=== PATIENT | female | born 1955 | race Caucasian/White ===

== ENCOUNTER → 2017-01-11 | Outpatient (CLI) | payer OTHER ==
[~2017-01-11] MED LIST: OPTIRAY 320 IV PRN
--- NOTE | 2017-01-11 13:09 | DIAGNOSTIC IMAGING REPORT ---
CT ANGIOGRAM OF THE CHEST CLINICAL HISTORY: Atypical chest pain and shortness of breath. History of recent right leg DVT. COMPARISON STUDY: No previous studies for comparison. TECHNIQUE: Following the IV administration of 92 mL of Optiray-320, CT angiogram of the thorax was performed from the thoracic inlet to the lung bases utilizing the pulmonary embolus protocol. Images are reviewed in the axial, sagittal, and coronal planes. IV contrast was administered without complication. MIP imaging was performed. CT DOSE: 644.18 mGy.cm FINDINGS: No pathologically enlarged axillary mediastinal or hilar lymph nodes were visualized. The ascending thoracic aorta measures 37 mm. No intimal flaps are visualized. There were no pulmonary artery filling defects to indicate acute pulmonary embolism. No pleural effusions are visualized. There was no evidence of focal pulmonary consolidation. IMPRESSION: 1. No acute intrathoracic findings 2. No evidence of acute pulmonary embolism 3. No evidence of focal pulmonary consolidation Electronically signed by: Thuan Gross M.D. 01/11/2017 1:07 PM Dictated Date/Time: 01/11/2017 1:04 PM
== END | disposition home or self-care (01) ==
LOC: C.CTS 12:38
DX: R06.02 Shortness of breath (principal)

== ENCOUNTER 2018-11-16 08:18 | Inpatient (IN) ==
--- NOTE | 2018-11-10 10:34 | PAT Medication Instructions ---
Medication Instructions Date of Service November 10, 2018 Home Medications apixaban [Eliquis] 2 tab PO QAM cholecalciferol (vitamin D3) 2,000 unit PO DAILY citalopram [Celexa] 10 mg PO UD diphenhydramine-acetaminophen 1 tab PO HS PRN gabapentin 3 tab PO HS leflunomide 10 mg PO QAM pantoprazole 40 mg PO QAM pediatric multivitamin [Gummi Bear 1 tab PO DAILY tramadol 50 mg PO BID PRN Continue as directed citalopram [Celexa] 10 mg PO UD ASK your prescriber and surgeon apixaban [Eliquis] 2 tab PO QAM (this will need to be held 72 hours prior to surgery in order for spinal anesthesia; please check with your prescribing doctor to see if this is okay) leflunomide 10 mg PO QAM DO NOT take the morning of surgery cholecalciferol (vitamin D3) 2,000 unit PO DAILY pediatric multivitamin [Gummi Bear 1 tab PO DAILY Take morning of surgery With a small sip of water, OTHERWISE NOTHING TO EAT OR DRINK AFTER MIDNIGHT: pantoprazole 40 mg PO QAM tramadol 50 mg PO BID PRN (okay to take up to 4 hours prior to surgery if needed) Take evening before surgery diphenhydramine-acetaminophen 1 tab PO HS PRN (if needed) gabapentin 3 tab PO HS tramadol 50 mg PO BID PRN (if needed) Other Notes If you have any questions please call us at [phone] or [phone] or [phone] or [phone]
--- NOTE | 2018-11-10 14:43 | Anesthesiology Consultation ---
Date of Service November 10, 2018 Assessment & Plan (1) Encounter for pre-operative examination: - Okay to hold Eliquis 72 hours per hematology/surgeon - PCP: 11/15/18: "it is medically reasonable to proceed with desired surgical procedure, if and only if hematology cleared regarding anticoagulation issues." Patient was seen by hematology and anticoagulation recommendations given. 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 Per heme note, hx rheumatoid arthritis (patient denied hx at PAT visit). Aware of upcoming Left TKA and recommend "hold her Eliquis three days prior to surgery and then resume after surgery.. once adequate hemostasis is achieved, which will be determined by surgeon." RLE U/S done 11/06/18 noting chronic/unchanged DVT from prior imaging 12/27/17 (surgeon aware)* Chart Review Chart Review: Acceptable Risk for Surgery and Patient seen in Pre Admission Testing Teaching & Discussion Pre-Anesthesia Teaching/Discussion Notes: Instructed NPO after midnight before surgery,except medications with 15 cc of water. Medication instructions provided according to the PAT guidelines. History Surgery Operation Date: 11/16/18 11:00 Proposed Procedures p Left Total Knee Arthroplasty - Paul Liang MD Height/Weight Height: 5 ft 5.5 in Weight: 105 kg Allergies Allergy/AdvReac Type Severity Reaction Status Date / Time No Known Allergies Allergy Unknown Verified 11/06/18 15:33 Medications Home Medications Medication Instructions Recorded Confirmed Last Taken apixaban [Eliquis] 2 tab PO QAM 11/06/18 11/06/18 11/06/18 cholecalciferol (vitamin D3) 2,000 unit PO DAILY 11/06/18 11/06/18 Unknown [Vitamin D3] citalopram [Celexa] 10 mg PO UD 11/06/18 11/06/18 Unknown diphenhydramine-acetaminophen 1 tab PO HS PRN 11/06/18 11/06/18 Unknown [Tylenol PM Extra Strength] gabapentin 3 tab PO HS 11/06/18 11/06/18 11/05/18 leflunomide 10 mg PO QAM 11/06/18 11/06/18 11/06/18 pantoprazole 40 mg PO QAM 11/06/18 11/06/18 11/06/18 pediatric multivitamin [Gummi Bear 1 tab PO DAILY 11/06/18 11/06/18 Unknown Multivitamin] tramadol 50 mg PO BID PRN 11/06/18 11/06/18 Unknown Past Medical History Medical History Acid reflux CONTROLLED Antithrombin III deficiency DVT (deep venous thrombosis) RLE; CHRONIC PER PATIENT; MONITORED BY DR. VILLAGOMEZ/RENATA Depression Obesity Osteoarthritis Personal history of kidney stones Rheumatoid arthritis PER HEMATOLOGY NOTE; PT DENIED Past Family History Family History Grandmother Family history of breast cancer Mother Family history of diabetes mellitus Past Surgical History Surgical History History of ankle surgery RIGHT History of arthroscopy of left knee X3 History of arthroscopy of right knee X2 History of cardiac cath 10 YEARS AGO= NO STENTS History of cholecystectomy History of colonoscopy History of endoscopy ? DILATION- PRIOR DYSPHAGIA RESOLVED S/P PROCEDURE History of hand surgery RIGHT HAND History of hysterectomy History of repair of right rotator cuff History of urologic surgery BLADDER TACKING Past Anesthesia History No Hx of Anesthesia Complications and No Family Hx of Anesthesia Complications History of PONV No Motion Sickness Screening History of Motion Sickness: Yes Social History Smoking Status: Never smoker Do You Dip or Chew Tobacco: No Hx Alcohol Use: Yes alcohol intake frequency: holidays/special occasions only Hx Substance Use: No substance use type: does not use Exercise / Class Metabolic Activity III < 4 Walking/Shop/Light housework Review of Systems Patient denies chest pain, shortness of breath, cough, wheezing, palpitations. Physical Exam Vital Signs VITALS BP 127/82 P 65 TEMP 98.0 SP02 97%RA RESP 16 PHYSICAL Full neck and c-spine range of motion. Full TMJ range of motion. TMD 3 finger breaths Mallampati Score 2 Dentition: partials upper/lower Lungs: clear throughout to auscultation Cardiac: regular rate and rhythm, no murmurs noted Spine: normal Carotid arteries: negative bruit Extremities: no edema Testing Electrocardiogram Date: 11/10/18 Findings: + NSR @ (78) Chest X-Ray Date: 11/10/18 Findings: + NAD No acute process. 1.1 cm ill-defined nodular opacity about the left lung base is not definitively seen on the lateral projection, possibly secondary to summation density artifact with underlying pulmonary nodule considered less likely (report was sent to PCP*) Echocardiogram Date: 02/23/17 EF >65%. No significant valvular disease. Other Testing RLE U/S: 11/06/18: stable chronic nonocclusive DVT right popliteal vein,essentially unchanged compared to 12/27/17 study. Laboratory Results 11/10/18 15:18 11/10/18 15:18 Blood Type A Positive 11/10/18 15:18 Antibody Screen NEGATIVE 11/10/18 15:18 PT 10.6 Seconds (9.0-12.0) 11/10/18 15:18 INR 1.0 (0.9-1.1) 11/10/18 15:18 APTT 27.9 Seconds (21.0-31.0) 11/10/18 15:18 Hemoglobin A1c 5.4 % (4.5-5.6) 11/10/18 15:18 Urine Color Yellow 11/10/18 15:18 Urine Appearance Clear (Clear) 11/10/18 15:18 Urine pH 6.5 (4.5-7.5) 11/10/18 15:18 Ur Specific [place] 1.023 (1.000-1.030) 11/10/18 15:18 Urine Protein Negative (Negative) 11/10/18 15:18 Urine Glucose (UA) Negative (Negative) 11/10/18 15:18 Urine Ketones Trace (Negative) H 11/10/18 15:18 Urine Nitrite Negative (Negative) 11/10/18 15:18 Ur Leukocyte Esterase 1+ (Negative) H 11/10/18 15:18 Urine WBC (Auto) 10-30 /hpf (0-5) H 11/10/18 15:18 Urine RBC (Auto) 0-4 /hpf (0-4) 11/10/18 15:18 U Hyaline Cast (Auto) 0 /lpf (0-5) 11/10/18 15:18 U Epithel Cells (Auto) >30 /lpf (0-5) H 11/10/18 15:18 Urine Bacteria (Auto) Negative (Negative) 11/10/18 15:18 11/10/18 15:18 Urine Culture - Final Urine,Clean Catch Gardnerella-like bacilli No sensitivities to follow per urine culture*
--- NOTE | 2018-11-10 16:05 | XRay Report ---
XR chest Pre-admission PA/Lat HISTORY: 63 years-old Female pat preoperative exam. No acute chest complaints COMPARISON: CTA of the chest 01/11/2017 TECHNIQUE: PA and lateral views of the chest FINDINGS: Cardiomediastinal and hilar silhouettes are within normal limits. No pneumothorax, pleural effusion, focal airspace consolidation or overt pulmonary edema. Ill-defined left basilar opacities are noted a long with ill-defined 1.1 cm nodular focus seen on the PA view without correlate on the lateral proje ction. Degenerative changes of the shoulders and spine. Prior cholecystectomy. IMPRESSION: 1. No acute process. 2. 1.1 cm ill-defined nodular opacity about the left lung base is not definitively seen on the latera l projection, possibly secondary to summation density artifact with underlying pulmonary nodule consi dered less likely. The above report was generated using voice recognition software. It may contain grammatical, syntax o r spelling errors. Electronically signed by: Goran Cohen M.D. 11/10/2018 4:04 PM
[2018-11-10 16:28] LABS: Basophils # (auto) 0.02 K/uL (0-0.2); Basophils % (auto) 0.4 %; Eosinophils # (auto) 0.37 K/uL (0-0.5); Eosinophils % (auto) 6.7 %; Hematocrit (blood only) 38.2 % (37-47); Hemoglobin 12.5 g/dL (12.0-16.0); Immature Granulocytes # (auto) 0.01 K/uL (0.00-0.02); Immature Granulocytes % (auto) 0.2 %; Lymphocytes # (auto) 1.84 K/uL (1.2-3.4); Lymphocytes % (auto) 33.3 %; Mean Corpuscular Hgb Conc 32.7 g/dL (32-36); Mean Corpuscular Volume 85.8 fL (80-100); Monocytes # (auto) 0.48 K/uL (0.11-0.59); Monocytes % (auto) 8.7 %; Neutrophils % (auto) 50.7 %; Platelet Count 198 K/uL (130-400); RDW Coefficient of Variation 14.1 % (11.5-14.5); RDW Standard Deviation 44.4 fL (36.4-46.3); Red Blood Count 4.45 M/uL (4.2-5.4); White Blood Count 5.52 K/uL (4.8-10.8)
[2018-11-10 16:29] LABS: Appearance Urine Clear (Clear); Bacteria Urine Automated Negative (Negative); Bilirubin Urine Negative (Negative); Blood Urine Negative (Negative); Cast Urine Automated 0 /lpf (0-5); Color Urine Yellow; Epithelial Cell Urine Auto >30 /lpf (0-5); Glucose Urine UA Negative (Negative); Ketones Urine Trace (Negative); Leukocyte Esterase Urine 1+ (Negative); Nitrite Urine Negative (Negative); Protein Urine Negative (Negative); RBC Urine Automated 0-4 /hpf (0-4); Specific Gravity Urine 1.023 (1.000-1.030); Urobilinogen Urine Negative (Negative); pH Urine 6.5 (4.5-7.5)
[2018-11-10 16:33] LABS: Albumin Level 3.3 gm/dl (3.4-5.0); BUN Creatinine Ratio 21.1 (10-20); Calcium 9.4 mg/dl (8.5-10.1); Creatinine Clr Calc Pharmacy 110.6 ml/min; Est GFR (African American) 110.8; Est GFR (Non-African American) 95.6; Potassium 3.7 mmol/L (3.5-5.1)
[2018-11-10 16:41] LABS: Partial Thromboplastin Time 27.9 Seconds (21.0-31.0); Prothrombin Time 10.6 Seconds (9.0-12.0)
[2018-11-11 06:47] LABS: Estimated Average Glucose 108 mg/dl; Hemoglobin A1C 5.4 % (4.5-5.6)
--- NOTE | 2018-11-15 11:10 | History and Physical Report ---
DATE OF ADMISSION: 11/16/2018 CHIEF COMPLAINT: Left knee pain. HISTORY OF PRESENT ILLNESS: The patient is a 63-year-old female with known osteoarthritis about her left knee. She is on Eliquis for long-term anticoagulation due to history of DVT. She is unable to take anti-inflammatory medications. She has had previous corticosteroid injection, but continues to have pain and disability with activities of daily living. She now desires to proceed with left total knee arthroplasty. 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 PAST SURGICAL HISTORY: Hand surgery, bilateral knee surgery, bladder surgery, hysterectomy, right ankle surgery, tonsils and adenoids. MEDICATIONS: Citalopram hydrobromide 10 mg daily, pantoprazole sodium 40 mg daily, Plaquenil 200 mg 2 tabs daily, Eliquis 5 mg b.i.d., tramadol 50 mg q. 8 hours p.r.n. pain, gabapentin 100 mg 3 capsules at bedtime. ALLERGIES: No known drug allergies. SOCIAL HISTORY AND REVIEW OF SYSTEMS: Noncontributory. PHYSICAL EXAMINATION: GENERAL: Well-nourished, well-developed female who appears her stated age. HEENT: Normocephalic, atraumatic, extraocular movements intact, oropharynx pink and moist. NECK: Supple without adenopathy. LUNGS: Clear to auscultation bilaterally. HEART: Regular rate and rhythm. ABDOMEN: Soft, nontender, nondistended. EXTREMITIES: The upper extremities are within normal limits. The left knee has a varus alignment. She complains primarily of medial compartment pain. Her range of motion from 0-125 degrees. X-RAYS: X-rays were reviewed. She has a varus aligned knee. She has [id number] arthritis of the medial compartment with complete loss of the joint space. There are medial joint line osteophytes. There is moderate to severe degenerative change about the patellofemoral joint with large osteophytes as well. ASSESSMENT: Left knee degenerative joint disease. PLAN: Risks versus benefits were discussed, consent was obtained. The patient's primary care physician is Dr. Anderson. Her wreath machine tender is Dr. Cardenas from [facility]. Will proceed with left total knee arthroplasty as indicated.
[~2018-11-16 08:18] MED LIST changes: +ACETAMINOPHEN 500 MG TAB PO SCH; +BUPIVACAINE 0.5 % 5 MG/1 ML PF 10ML VIAL ONE; +CeleBREX 200 MG CAP PO SCH; +FAMOTIDINE 20 MG TAB PO SCH; +GABAPENTIN 300 MG x 2 PO SCH; +LR 500ML BOLUS, THEN 15ML/HR IV SCH; -OPTIRAY 320 IV PRN; +ROPIVACAINE 0.5% 5 MG/ML 30 ML VIAL ONE; +ROPIVACAINE 0.5% HCL/PF 150 MG, BUPIVACAINE 0.5% MPF 30 ML, EPINEPHrine 30MG/30ML (OR U... INFIL SCH; +dexAMETHasone 4 MG TAB PO SCH
[2018-11-16] MEDS ORDERED: PHENYLEPHRINE 100MCG/ML 5ML SYR ONE (08:31)
[2018-11-16] MEDS ORDERED: PROPOFOL IV EMULSION 10 MG/ML 20 ML VIAL IV ONE ×2 (08:31→10:47)
[2018-11-16] MEDS ORDERED: ePHEDrine sulfate 50 MG/ML SYR ONE (08:31)
[2018-11-16] MEDS ORDERED: fentaNYL citrate 100 MCG/2 ML VIAL ONE (08:31)
[2018-11-16] MEDS ORDERED: LIDOCAINE HCL 2% 2 ML VIAL/AMP(20MG/ML) INFIL ONE (08:31)
[2018-11-16] MEDS ORDERED: MIDAZOLAM HCL 1 MG/ML 2ML VIAL ONE ×2 (08:31)
--- NOTE | 2018-11-16 09:14 | History & Physical Bridge Note ---
Date of Service November 16, 2018 History & Physical Bridge Note I have examined the patient, reviewed the History & Physical and in the interval since the performance of the History & Physical I have noted the following changes of clinical significance: no changes noted
[2018-11-16] MEDS ORDERED: POVIDONE-IODINE OP SOLN 30 ML BTL ONE (09:31)
[2018-11-16] MEDS ORDERED: ORTHO JOINT ANESTHETIC ONE (09:31)
[2018-11-16] MEDS ORDERED: BACITRACIN INJ 50,000 UNIT VIAL ONE (09:31)
[2018-11-16] MEDS ORDERED: ATROPINE SULFATE 0.1 MG/ML 10ML SYR IV PRN ×2 (10:08→12:52)
[2018-11-16] MEDS ORDERED: ePHEDrine sulfate 50 MG/ML AMP IV PRN ×2 (10:08→12:52)
[2018-11-16] MEDS: CEFAZOLIN 2000MG 2,000 MG/15 ML SYR IV SCH ×3 (10:23→19:40)
--- NOTE | 2018-11-16 11:22 | Operative Report ---
Post Operative Report Pre & Post Diagnosis Operation Date: 11/16/18 11:00 Pre-Op Diagnosis: LEFT KNEE OSTEOARTHRITIS Post-Op Diagnosis: LEFT KNEE OSTEOARTHRITIS Procedure Operation Date: 11/16/18 11:00 Actual Procedures p Left Total Knee Arthroplasty(Left) - Paul Liang MD Surgeon Paul Liang MD Chief Inspector Molly Estimated Blood Loss 10 Findings Consistent with Post-Op Diagnosis Specimens Bone fragments Anesthesia Type Spinal MAC Complications none Disposition Accompanied Patient To Recovery: No Disposition: Recovery Room Indications Knee pain Description of Procedure Patient's left leg was prepped and draped in usual sterile manner. The limb was exsanguinated with an Esmarch bandage tourniquet inflated to 3 enemas Vicryl. Longitudinal incision was made and a median parapatellar incision was made after again the patella was everted and the knee was flexed fat pad was removed and the anterior posterior cruciate was removed. The medial face of the tibia was cleared of soft tissues in the blunt Hohmann and proximal tibia was osteotomized at the appropriate level using the oscillating saw and the guide. This bone fragment was removed. Next attention was turned to the femur was drilled was used to gain access to the femoral canal. Distal femoral cut was made at a level of 10 mm due to the preoperative flexed flexion contracture. The chamfer cuts with a meat made and as well as the notch cut was made. The medial and lateral meniscus were removed and the proximal femoral component was impacted in position. A blunt Hohmann was used to presented to the anterior leg and the proximal tibia size 4 was chosen the stem was prepared using the drill and a punch and trial reduction was carried out an 11 mm poly-was chosen. Patella was reamed and a 35 mm patella was utilized. We will try removed after documentation that the patella tracked well the knee was thoroughly irrigated periarticular joint mix was injected and the final components were cemented into position. Following hardening cement Betadine soap was utilized to range of motion the joint mix was injected and Hemovac drain was placed the extensor mechanism was closed using #1 Vicryl subcutaneous tissue was closed using 0 Dexon skin was closed with is applied. Sterile dressing of Adaptic 4 x 4's sterile umbilicus applied. The patient tolerated the procedure well. Mr. Souza was utilized for all portions of the case including positioning prepping draping surgical assistance wound closure and dressing application. I attest to the content of the Intraoperative Record and any orders documented therein. Any exceptions are noted below.
--- NOTE | 2018-11-16 12:33 | XRay Report ---
XR knee LT 2V routine CLINICAL HISTORY: Postop knee arthroplasty COMPARISON: None. DISCUSSION: There are postsurgical changes of a total left knee arthroplasty and patellar resurfacing . The femoral and tibial components appear well seated. No acute fractures or dislocations are visual ized. There is an overlying surgical drain. IMPRESSION: Postsurgical changes of a total left knee arthroplasty. Electronically signed by: Thuan Gross M.D. 11/16/2018 12:32 PM
[2018-11-16] MEDS ORDERED: ONDANSETRON INJ 2 MG/ML 2 ML VIAL ONE (12:47)
[2018-11-16] MEDS ORDERED: DEXAMETHASONE SOD INJ 4 MG/ML VIAL IV PRN (12:52)
[2018-11-16] MEDS ORDERED: fentaNYL citrate 100 MCG/2 ML VIAL IV PRN (12:52)
[2018-11-16] MEDS ORDERED: ONDANSETRON INJ 2 MG/ML 2 ML VIAL IV PRN ×2 (12:52→13:24)
[2018-11-16] MEDS ORDERED: SODIUM CHLORIDE 0.9% 1000ML 1,000 ML IV SCH (13:24)
[2018-11-16] MEDS ORDERED: BISACODYL 10 MG SUPP PR PRN (13:24)
[2018-11-16] MEDS ORDERED: MAGNESIUM HYDROXIDE SUSP 30 ML UDC PO PRN (13:24)
[2018-11-16] MEDS ORDERED: NALOXONE HCL 0.4 MG/1 ML VIAL/CARP IV PRN (13:24)
[2018-11-16] MEDS ORDERED: HYDROmorphone INJ 0.5 MG/0.5 ML SYR IV PRN (13:24)
[2018-11-16] MEDS ORDERED: METOCLOPRAMIDE HCL INJ 5 MG/ML 2 ML VIAL IV PRN (13:24)
--- NOTE | 2018-11-16 14:02 | Anesthesiology Progress Note ---
Date of Service November 16, 2018 Anesthesia Post Procedure Vital Signs Vital Signs: Temp Pulse Pulse Resp BP Pulse Ox 11/16/18 13:00 77 18 143/83 H 99 11/16/18 12:50 36.4 C L 70 15 160/84 H 98 11/16/18 12:40 77 14 141/84 H 100 11/16/18 12:30 79 15 146/87 H 99 11/16/18 12:20 82 19 146/98 H 98 11/16/18 12:10 83 16 140/76 100 11/16/18 12:05 89 17 133/82 100 11/16/18 11:59 36 C L 98 H 16 132/76 99 11/16/18 08:46 36.7 C 84 18 171/93 H Pain Intensity Left Knee: Pain Intensity: 0 Notes Mental Status: alert / awake / arousable and participated in evaluation Patient Amnestic to Procedure: Yes Nausea / Vomiting: adequately controlled Pain: adequately controlled Airway Patency, RR, SpO2: stable & adequate BP & HR: stable & adequate Hydration State: stable & adequate Neuraxial Anesthesia: was administered and sensory block is resolving Anesthetic Complications: no major complications apparent
[2018-11-16] MEDS ORDERED: ZOLPIDEM TARTRATE 5 MG TAB PO PRN (17:12)
[2018-11-16] MEDS: OXYCODONE HCL IR 5 MG TAB (IMMEDIATE RELEASE) PO PRN ×2 (18:25→23:30)
[2018-11-16] MEDS: DOCUSATE SODIUM 100 MG CAP PO SCH (20:08)
[2018-11-16] MEDS: SENNA 8.6 MG TAB PO SCH (20:08)
[2018-11-16] MEDS: GABAPENTIN 300 MG CAP PO SCH (20:08)
[2018-11-16] MEDS: ACETAMINOPHEN 500 MG TAB PO SCH (21:30)
[2018-11-17] MEDS: CEFAZOLIN 2000MG 2,000 MG/15 ML SYR IV SCH (02:13)
[2018-11-17] MEDS: ACETAMINOPHEN 500 MG TAB PO SCH ×3 (06:11→21:49)
[2018-11-17 06:55] LABS: Hematocrit (blood only) 32.7 % (37-47); Hemoglobin 10.7 g/dL (12.0-16.0); Mean Corpuscular Hgb Conc 32.7 g/dL (32-36); Mean Corpuscular Volume 84.9 fL (80-100); Mean Platelet Volume 9.9 fL (7.4-10.4); Platelet Count 179 K/uL (130-400); RDW Coefficient of Variation 13.8 % (11.5-14.5); RDW Standard Deviation 42.6 fL (36.4-46.3); Red Blood Count 3.85 M/uL (4.2-5.4); White Blood Count 10.66 K/uL (4.8-10.8)
[2018-11-17] MEDS: PANTOprazole 40 MG TAB PO SCH (07:08)
[2018-11-17 07:30] LABS: BUN Creatinine Ratio 19.3 (10-20); Calcium 8.4 mg/dl (8.5-10.1); Est GFR (African American) 85.1; Est GFR (Non-African American) 73.4; Potassium 3.6 mmol/L (3.5-5.1)
--- NOTE | 2018-11-17 07:47 | Anesthesiology Progress Note ---
Date of Service November 17, 2018 Anesthesia Post Procedure Vital Signs Vital Signs: Temp Pulse Pulse Resp BP Pulse Ox 11/17/18 03:58 36.5 C 75 18 147/77 H 95 11/16/18 23:36 36.6 C 76 16 144/78 H 97 11/16/18 16:21 36.5 C 66 17 122/74 97 11/16/18 15:35 75 17 125/75 98 11/16/18 14:26 74 16 124/75 99 11/16/18 13:20 36.5 C 74 16 99 11/16/18 13:00 77 18 143/83 H 99 11/16/18 12:50 36.4 C L 70 15 160/84 H 98 11/16/18 12:40 77 14 141/84 H 100 11/16/18 12:30 79 15 146/87 H 99 11/16/18 12:20 82 19 146/98 H 98 11/16/18 12:10 83 16 140/76 100 11/16/18 12:05 89 17 133/82 100 11/16/18 11:59 36 C L 98 H 16 132/76 99 11/16/18 08:46 36.7 C 84 18 171/93 H Pain Intensity Left Knee: Pain Intensity: 3 Notes Mental Status: alert / awake / arousable and participated in evaluation Patient Amnestic to Procedure: Yes Nausea / Vomiting: adequately controlled Pain: adequately controlled Airway Patency, RR, SpO2: stable & adequate BP & HR: stable & adequate Hydration State: stable & adequate Neuraxial Anesthesia: was administered and sensory block resolved Anesthetic Complications: no major complications apparent and Pt Satisfied with anesthetic care
--- NOTE | 2018-11-17 08:35 | Orthopedic Progress Note ---
Date of Service November 17, 2018 Assessment & Plan (1) Left knee DJD: PT and OT protocols today. Weightbearing as tolerated. DVT prophylaxis with apixaban twice daily, LIVIER Hua. We will follow her calf pain at this point in time to see if it has worsens or is getting better. I discussed this with the patient and she will make note if there is any changes. Pain management with acetaminophen, hydromorphone, oxycodone. Discharge planning-patient is planning for home health services upon discharge. Subjective Patient is postop day 1 status post left total knee arthroplasty. She is currently sitting up at the bedside in her chair eating her breakfast. She denies shortness of breath, chest pain, lightheadedness, nausea vomiting. She states she was having little bit of pain in the posterior calf this morning. She states that it was mild. She has no other complaints at this time. Physical Exam Vital Signs (Past 24 Hours): Last Vital Signs Temp 36.5 C 11/17/18 08:10 Pulse 76 11/17/18 08:10 Resp 16 11/17/18 08:10 BP 131/74 11/17/18 08:10 Pulse Ox 95 11/17/18 08:10 Physical Exam: Dressings are intact and dry. It is noted that she had some excess drainage and the dressing was reinforced. No further drainage is noted at this time. Hemovac drainage was 75 mL's from the previous shift. She points to a small area that is posterior lateral on her proximal calf on the left leg that was the point of her pain. On palpation she does not have any overt pain in that area but mild at best. Homans exam is negative. Neurovascular is intact. Toes are mobile. Results & Data Laboratory Results 11/17/18 11/17/18 Range/Units 06:38 06:38 WBC 10.66 (4.8-10.8) K/uL RBC 3.85 L (4.2-5.4) M/uL Hgb 10.7 L (12.0-16.0) g/dL Hct 32.7 L (37-47) % MCV 84.9 (80-100) fL MCH 27.8 (25-34) pg MCHC 32.7 (32-36) g/dL RDW Std Deviation 42.6 (36.4-46.3) fL RDW Coeff of Debora 13.8 (11.5-14.5) % Plt Count 179 (130-400) K/uL MPV 9.9 (7.4-10.4) fL Sodium 143 (136-145) mmol/L Potassium 3.6 (3.5-5.1) mmol/L Chloride 113 H (98-107) mmol/L Carbon Dioxide 24 (21-32) mmol/L Anion Gap 6.0 (3-11) BUN 16 (7-18) mg/dl Creatinine 0.85 (0.6-1.2) mg/dl Est Cr Clr Drug Dosing 84.0 ml/min Est GFR ( Amer) 85.1 Est GFR (Non-Af Amer) 73.4 BUN/Creatinine Ratio 19.3 (10-20) Glucose 164 H (70-99) mg/dl Calcium 8.4 L (8.5-10.1) mg/dl
[2018-11-17] MEDS: MULTIVITAMIN TAB PO SCH (09:13)
[2018-11-17] MEDS: OXYCODONE HCL IR 5 MG TAB (IMMEDIATE RELEASE) PO PRN ×4 (09:13→23:35)
[2018-11-17] MEDS: DOCUSATE SODIUM 100 MG CAP PO SCH ×2 (09:14→20:34)
[2018-11-17] MEDS: CHOLECALCIFEROL 1,000 UNITS TAB PO SCH (09:14)
[2018-11-17] MEDS: APIXABAN 5 MG TABLET PO SCH ×2 (09:14→20:34)
--- NOTE | 2018-11-17 16:38 | Ultrasound Report ---
ULTRASOUND LEFT LOWER EXTREMITY VENOUS CLINICAL HISTORY: Left leg pain. Recent surgery. COMPARISON STUDY: No priors TECHNIQUE: Real-time, grayscale, and color Doppler sonography of the deep veins of the left lower ext remity was performed from the inguinal crease to the calf. Compression and augmentation were utilized . FINDINGS: There is no sonographic evidence of deep venous thrombosis identified in the left lower ext remity. The common femoral, superficial femoral, and popliteal veins are patent and normally compress ible. The greater saphenous vein and the profunda femoris vein at the junction with the common femora l vein are clear. The visualized calf veins are patent. IMPRESSION: There is no sonographic evidence of deep venous thrombosis identified in the left lower e xtremity. Electronically signed by: Nathan Guerrero M.D. 11/17/2018 4:37 PM
[2018-11-17] MEDS ORDERED: HydrALAZINE HCL 20 MG/ML VIAL IV ONE (18:19)
--- NOTE | 2018-11-17 20:19 | Consultation ---
Date of Consultation November 17, 2018 Assessment & Plan (1) Left knee DJD: 63 y/o F Hx DVT, DJD, RA, depression. Presented for elective L TKR. In the post-op period she has been persistently hypertensive independent of pain levels. She does not carry a prior diagnosis of HTN. She denies a headache, CP or SOB. Her systolic blood pressure on initial evaluation was 180. 1) HTN post-op - if this persists, it is possible that she has undiagnosed HTN. More likely this post-op hypertension which can be due to resultant sympathetic activation during this period, irrespective of pain. we have provided Hydralazine as needed due to it's short duration of action and ability to provide IV dosing on the med floor. If this persists, a B ilene would be a better option. If it is felt that she does have undiagnosed HTN, we could give her a trial of an MANA provided AM labs are WNL. 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 3) Hx of DVTs - Has resumed Eliquis 4) Depression - cont Citalopram Total time for this consult including review of labs, meds, imaging, ortho notes - discussion with pt - 34 min Medical service will follow pending normalization of BP Present on Admission?: Yes History of Present Illness Reason for Consultation: HTN Requesting Physician: Garth Attending Physician: Paul Liang MD History of Present Illness 63 y/o F Hx DVT, DJD, RA, depression. Presented for elective L TKR. In the post-op period she has been persistently hypertensive independent of pain levels. She does not carry a prior diagnosis of HTN. She denies a headache, CP or SOB. She denies excessive pain a the surgical site. Her systolic blood pressure on initial evaluation was 180. PMH: 1) Hypercoagulable with history of DVT - possibly has antithrombin III deficiency. 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 which has been present for 1.5 yrs 2) DJD 3) Depression 4) Obese 5) RA Social: No history of smoking or drinking Family: Mother due to cardiac arrest - she had ESD and one day prior to commencing dialysis Father due to CAD/[place] Family: Allergies Allergy/AdvReac Type Severity Reaction Status Date / Time No Known Allergies Allergy Unknown Verified 11/16/18 08:41 Home Medications Home Medications Medication Instructions Recorded Confirmed Type apixaban [Eliquis] 5 mg PO BID 11/06/18 11/16/18 History cholecalciferol (vitamin D3) 2,000 unit PO DAILY 11/06/18 11/16/18 History [Vitamin D3] citalopram [Celexa] 10 mg PO UD 11/06/18 11/06/18 History diphenhydramine-acetaminophen 1 tab PO HS PRN 11/06/18 11/16/18 History [Tylenol PM Extra Strength] gabapentin 3 tab PO HS 11/06/18 11/06/18 History leflunomide 10 mg PO QAM 11/06/18 11/06/18 History pantoprazole 40 mg PO QAM 11/06/18 11/06/18 History pediatric multivitamin [Gummi Bear 1 tab PO DAILY 11/06/18 11/16/18 History Multivitamin] tramadol 50 mg PO BID PRN 11/06/18 11/16/18 History acetaminophen [Pain Reliever] 1,000 mg PO Q8 14 Days #84 tab 11/17/18 Rx cefadroxil 500 mg PO BID #28 cap 11/17/18 Rx oxycodone 5 - 10 mg PO Q6H PRN #30 tab 11/17/18 Rx sennosides [Senokot] 17.2 mg PO HS #30 tab 11/17/18 Rx Patient History Family History Grandmother Family history of breast cancer Mother Family history of diabetes mellitus Social History Preferred Language: Kinyarwanda Communication Ability: Effective Bridge [employer] Manager Required: No Beliefs That Will Affect Care: None Current Living Situation: Spouse and Other Current Living Situation Comment: [employer]OUSE [employer] BROTHER Other Information That Helps Us Care for You: No Feels Safe at Home: Yes Smoking Status: Never smoker Hx Alcohol Use: Yes Hx Substance Use: No Review of Systems Gen: Denies fevers, night sweats, rigors, fatigue, malaise, weight loss/gain ENT: Denies congestion, throat pain, hearing loss Eyes: Denies acute visual changes CV: Denies CP, palpitations Pulmonary: Denies SOB, cough, wheezing GI: Denies N/V, diarrhea, constipation Neuro: Denies acute or unilateral weakness, acute gait impairment, headache or acute visual changes Musculoskeletal: Denies joint pain, inflammation Endocrine: Denies polydipsia, polyuria Skin: Denies acute rashe or ulcers Physical Exam Vital Signs (Past 24 Hours): Last Vital Signs Temp 36.8 C 11/17/18 17:38 Pulse 72 11/17/18 19:44 Resp 18 11/17/18 17:38 BP 152/77 H 11/17/18 19:44 Pulse Ox 98 11/17/18 17:38 Physical Exam: General: AAO x 3, no distress ENT: No erythema or exudates, no thrush Eyes: KATHRYN, EOMI Head and neck: Normocephalic, atraumatic, No JVD, neck is supple. Chest/heart: Nontender, S1,2, RRR, no murmurs, no gallops Lungs: CTAB, no wheezing or crackles Abdomen: Nontender, nondistended, BS+ Neuro: AAO x 3, speech is clear, no unilateral weakness or loss of sensation, coordination intact Musculoskeletal: No joint inflammation, muscle tenderness, FROM Skin: No acute rashes or ulcers Extremities: No clubbing, cyanosis, edema
[2018-11-17] MEDS: SENNA 8.6 MG TAB PO SCH (20:34)
[2018-11-17] MEDS: GABAPENTIN 300 MG CAP PO SCH (20:34)
[2018-11-18] MEDS: OXYCODONE HCL IR 5 MG TAB (IMMEDIATE RELEASE) PO PRN ×3 (03:54→12:17)
[2018-11-18] MEDS: ACETAMINOPHEN 500 MG TAB PO SCH (05:38)
[2018-11-18] MEDS: APIXABAN 5 MG TABLET PO SCH (08:23)
[2018-11-18] MEDS: CHOLECALCIFEROL 1,000 UNITS TAB PO SCH (08:23)
[2018-11-18] MEDS: DOCUSATE SODIUM 100 MG CAP PO SCH (08:23)
[2018-11-18] MEDS: PANTOprazole 40 MG TAB PO SCH (08:24)
[2018-11-18] MEDS: MULTIVITAMIN TAB PO SCH (08:24)
--- NOTE | 2018-11-18 09:53 | Orthopedic Progress Note ---
Date of Service November 18, 2018 Assessment & Plan (1) Status post left knee replacement: 63 yo female stable POD #2 s/p left TKA 1. Med management 2. DVT prophylaxis- rosae Melita Abarca 3. PT/OT 4. D/C planning- home w/ HH Subjective Pt resting in bed, pain controlled, denies complaints Physical Exam Vital Signs (Past 24 Hours): Last Vital Signs Temp 36.6 C 11/18/18 07:40 Pulse 83 11/18/18 07:40 Resp 18 11/18/18 07:40 BP 157/72 H 11/18/18 07:40 Pulse Ox 96 11/18/18 07:40 Physical Exam: Toes mobile, N/V/I, dressing in place
--- NOTE | 2018-11-21 03:36 | Discharge Summary ---
DISCHARGE DIAGNOSIS: Degenerative joint disease, left knee. 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 CONSULTS: Dr. Wai Guallpa. COMPLICATIONS: None. PROCEDURES: Left total knee arthroplasty performed by Dr. Liang on 11/16/2018. BRIEF HISTORY: As dictated in the history and physical. HOSPITAL SUMMARY: The patient was admitted on the above date and had the above-noted surgery performed, which she tolerated well. On the first postoperative day, she was sitting at the bedside eating breakfast. Denied shortness of breath, chest pain, lightheadedness, nausea or vomiting. States she was having a little bit of pain in the posterior calf that morning that was mild. She had no other complaints. Vital signs were stable. She was afebrile. Dressings were intact and dry. She has some noted access drainage around the dressing, which was reinforced. No further drainage as noted at that time. Hemovac drainage was 75 mL from the previous shift. She points to a small area that is in the posterior lateral calf that was giving her some discomfort. She did not have any overt pain in that area but was mild at best. Homans' exam was negative. Neurovascularly intact. Toes were mobile. Hemoglobin was 10.7 and she was started on physical therapy protocol and continued on DVT prophylaxis and pain management. Plans were to possibly an ultrasound of the left lower extremity if her pain worsened. By later that afternoon I was contacted by the nursing stating that the patient was having increasing calf pain in the left calf and an ultrasound was then ordered to rule out DVT that came back later in the evening that it was negative for DVT and the patient was continued on her protocol. By 11/18/2018 she was resting in bed. Pain was controlled. She had no complaints. Vital signs were stable. She is afebrile. Toes were mobile. Neurovascular intact. Dressings were in place. She was progressing with her PT and it was felt she could be discharged to home with home health services. For further review, please see chart. LABORATORY AND X-RAY DATA: As per chart. DISCHARGE INSTRUCTIONS: The patient will be as discharged home in satisfactory condition on 11/18/2018. DIET: Regular. ACTIVITY: Weightbearing as tolerated left lower extremity with a walker. Follow TK instruction sheets and special care instructions as noted. Follow up with Dr. Liang in 2 weeks. The patient to call for appointment if one has not been made for. DISCHARGE MEDICATIONS: Acetaminophen 1000 mg p.o. q. 8 hours, cefadroxil 500 mg p.o. b.i.d., oxycodone 5-10 mg p.o. q. 6 hours p.r.n., sennosides 17.2 mg p.o. at bedtime. Resume home meds as listed and stop taking Tylenol PM extra strength, leflunomide and tramadol.
== END 2018-11-18 13:17 | disposition home health service (06) | DRG 470 ==
LOC: ASU 08:18 → 3E 12:06